=== PATIENT | male | born 1960 | race Caucasian/White ===

== ENCOUNTER → 2022-02-10 | Outpatient (CLI) ==
[~2022-02-10] MED LIST: ALLO10TA PO; AMLO1TAB25 PO; CARV80CA PO; CRES40TA PO; CYCL-707 PO; ELIQ5TAB PO; GABA-282 PO; HYDR12CA PO; OZEM2INJ SC; RAMI1CAP26 PO
== END ==
LOC: M LABSMTC 10:08
PROVIDERS: ATTEND Anesthesiology
DX: Z20.828 Contact with and (suspected) exposure to other viral communicable diseases (principal); Z11.59 Encounter for screening for other viral diseases

== ENCOUNTER 2022-02-15 06:08 | Day surgery (SDC) | payer OTHER, SELFPAY ==
[~2022-02-15] VITALS: Ht 175.3 cm; Wt 135.1 kg
[~2022-02-15 06:08] MED LIST changes: +BSS IRRIG/VANCO(10MG)/TOBRA(5MG)/EPINEPH(1:1000-0.5CC)500ML BAG-ORONLY IR ONE; +LIDOCAINE 3.5 % 1ML OPHTH TOPICAL GEL OU ONE; +OFLOXACIN 0.3 % (OCUFLOX) OPTH SOL 5ML OD ONE; +PHENYLEPHRINE HCL 10 % OPHTH. SOL 5ML OD PRN
[2022-02-15] MEDS ORDERED: POVIDONE-IODINE 5% OPHTH PREP SOL 30ML As Ordered ONE (06:52)
[2022-02-15] MEDS ORDERED: LIDOCAINE 1% SDV 5ML VIAL As Ordered ONE (06:52)
[2022-02-15] MEDS ORDERED: CEFUROXIME 1MG/0.1ML INTRACAMERAL INJ As Ordered ONE (06:53)
[2022-02-15] MEDS: TROPICAMIDE 1% OPHTH SOLN 2ML OD SCH ×3 (07:27→07:49)
[2022-02-15] MEDS: CYCLOPENTOLATE 1% OPHTH SOLN 2 ML BTL OD SCH ×3 (07:27→07:49)
[2022-02-15] MEDS: PHENYLEPHRINE 2.5% OPHTH SOL 2ML OD SCH ×3 (07:27→07:49)
[2022-02-15] MEDS ORDERED: fentaNYL 100 MCG/2 ML INJECTION As Ordered ONE (08:25)
[2022-02-15] MEDS ORDERED: MIDAZOLAM INJ 2MG/2ML VIAL (J2250 PER 1MG) As Ordered ONE (08:25)
[2022-02-15 08:36] VITALS: BP 140/77
== END 2022-02-15 08:50 | disposition home or self-care (01) ==
LOC: M SDC 06:08
PROVIDERS: ATTEND Ophthalmology
DX: H25.11 Age-related nuclear cataract, right eye (principal); I10 Essential (primary) hypertension; E11.9 Type 2 diabetes mellitus without complications; E78.5 Hyperlipidemia, unspecified; Z95.0 Presence of cardiac pacemaker; Z88.5 Allergy status to narcotic agent; Z91.040 Latex allergy status; Z88.8 Allergy status to other drugs, medicaments and biological substances; M10.9 Gout, unspecified; Z79.01 Long term (current) use of anticoagulants; Z79.899 Other long term (current) drug therapy; G47.33 Obstructive sleep apnea (adult) (pediatric)
CPT/HCPCS: 66984; J0697; J2250; J3010; V2632